=== PATIENT | male | born 2000 | race Asian ===

== ENCOUNTER 2021-03-03 14:33 | Outpatient (CLI) | payer SELFPAY ==
--- NOTE | 2021-03-03 16:52 | XRAY Report ---
PROCEDURE: Clavicle RT INDICATIONS: FX OF R CLAVICLE TECHNIQUE: 2 views of the clavicle were acquired. COMPARISON: None. FINDINGS: Bones: Moderately displaced comminuted fracture of the midshaft of the clavicle which demonstrates a roughly 25 mm of override. Soft tissues: No suspicious soft tissue calcifications. IMPRESSION: Mid shaft clavicular fracture as above. Reviewed by: Dennise Allen MD on 03/03/2021 4:51 PM PDT Approved by: Dennise Allen MD on 03/03/2021 4:51 PM PDT Station ID: [id number]
== END 2021-03-03 23:59 | disposition home or self-care (01) ==
LOC: DI.N 14:33
PROVIDERS: ATTEND Family Medicine
DX: S42.021A Displaced fracture of shaft of right clavicle, initial encounter for closed fracture (principal)

== ENCOUNTER 2021-03-15 06:12 | Day surgery (SDC) | payer OTHER ==
[2021-03-15] MEDS ORDERED: CELECOXIB 100 MG CAPSULE PO ONE (06:18)
[2021-03-15] MEDS ORDERED: ACETAMINOPHEN 1,000 MG/100 ML 100 ML IV ONE (06:18)
[2021-03-15] MEDS ORDERED: CEFAZOLIN SODIUM IN 0.9 % NACL 2 GM/100 ML BAG IV ONE (06:18)
[2021-03-15] MEDS ORDERED: LACTATED RINGERS 1,000 ML IV ONE ×2 (06:23→10:39)
[2021-03-15] MEDS ORDERED: ROCURONIUM 50 MG/5 ML VIAL ONE (07:10)
[2021-03-15] MEDS ORDERED: PROPOFOL 200 MG/20 ML VIAL IVP ONE (07:10)
[2021-03-15] MEDS ORDERED: MIDAZOLAM 2 MG/2 ML VIAL ONE (07:10)
[2021-03-15] MEDS ORDERED: LIDOCAINE-MPF 2% 5 ML VIAL ONE (07:10)
[2021-03-15] MEDS ORDERED: fentaNYL 100 MCG/2 ML VIAL ONE (07:10)
[2021-03-15] MEDS ORDERED: DEXAMETHASONE 10 MG/ML VIAL ONE (07:16)
[2021-03-15] MEDS ORDERED: ROPIVACAINE 0.5% PF 20 ML AMPULE ONE (07:17)
--- NOTE | 2021-03-15 07:18 | ANESTHESIA ---
Pre-Anesthesia VS, & Labs - Diagnosis displaced clavicle fracture - Procedure right clavicle ORIF Vital Signs: Temp Pulse Resp BP Pulse Ox 36.6 C 84 14 119/74 100 03/15/21 06:27 03/15/21 06:27 03/15/21 06:27 03/15/21 06:27 03/15/21 06:27 Height: 5 ft 4 in Weight (kg): 57.6 kg Body Mass Index: 21.8 BMI Classification: Healthy weight - NPO >8 hours - Lab Results Current Lab Results: Laboratory Tests 03/15/21 06:48: POC Whole Bld Glucose 85 Home Medications and Allergies Home Medications: Ambulatory Orders No Known Home Medications 03/10/21 No Known Home Medications 03/10/21 Allergies/Adverse Reactions: Allergies Allergy/AdvReac Type Severity Reaction Status Date / Time No Known Drug Allergies Allergy Verified 03/10/21 12:25 Anes History & Medical History - Anesthetic History Anesthesia Complications: reports: No previous complications - Medical History Cardiovascular: reports: None Pulmonary: reports: None Gastrointestinal: reports: None Urinary: reports: None Musculoskeletal: reports: None Endocrine/Autoimmune: reports: None Skin: reports: Eczema History of Cancer?: No Exam General: Alert Dental: WNL Mouth Opening: Greater than 4 Fingerbreadths Neck Mobility: Normal Mallampati classification: I Respiratory: Lungs clear Cardiovascular: Regular rate Plan Anesthesia Type: General Consent for Procedure(s) Verified and Reviewed: Yes Code Status: Attempt Resuscitation ASA classification: 1-Healthy patient Is this case an emergency?: No
[2021-03-15] MEDS ORDERED: METOCLOPRAMIDE 10 MG/2 ML VIAL IVP PRN ×2 (07:20→11:45)
[2021-03-15] MEDS ORDERED: MORPHINE 2 MG/ML CARPUJECT IVP PRN (07:20)
[2021-03-15] MEDS ORDERED: ePHEDrine 50 MG/ML VIAL IVP PRN (07:20)
[2021-03-15] MEDS ORDERED: ONDANSETRON 4 MG/2 ML VIAL IVP PRN (07:20)
[2021-03-15] MEDS ORDERED: NALOXONE 0.4 MG/ML VIAL IVP PRN (07:20)
[2021-03-15] MEDS ORDERED: fentaNYL 100 MCG/2 ML VIAL IVP PRN (07:20)
[2021-03-15] MEDS ORDERED: HYDROmorphone 0.5 MG/0.5 ML SYRINGE IVP PRN (07:20)
[2021-03-15] MEDS ORDERED: ATROPINE ABBOJECT 1 MG/10 ML SYRINGE IVP PRN (07:20)
[2021-03-15] MEDS ORDERED: KETOROLAC 15 MG/ML VIAL IVP STA (07:23)
[2021-03-15] MEDS ORDERED: oxyCODONE 5 MG TABLET PO PRN (07:23)
[2021-03-15] MEDS ORDERED: BUPIVACAINE 0.5%-EPI 1:200000 PF 30 ML VIAL ONE (07:24)
[2021-03-15] MEDS ORDERED: VANCOMYCIN 1 GM VIAL ONE (07:24)
[2021-03-15] MEDS ORDERED: LACTATED RINGERS 1,000 ML IV SCH (08:00)
[2021-03-15] MEDS ORDERED: VANCOMYCIN 1 GM VIAL MC ONE (09:51)
[2021-03-15] MEDS ORDERED: ONDANSETRON 4 MG/2 ML VIAL ONE ×2 (10:13→11:19)
--- NOTE | 2021-03-15 10:29 | OPERATIVE REPORT ---
Operative Report - General Procedure Date: 03/15/21 Planned Procedure: Open reduction internal fixation right midshaft clavicle Pre-Op Diagnosis: Displaced, comminuted fracture right midshaft clavicle Procedure Performed: Open reduction internal fixation right clavicle with superior plate, lag screw; internal fixation provided by Arthrex Post Op Diagnosis: Same as preoperative diagnosis - Procedure Note Primary Surgeon: Jaya Wagner MD Secondary Surgeon: Benitez CHUA Anesthesia Provider: Rufina Katz CRNA Anesthesia Technique: General ET tube, Regional block Estimated Blood Loss (mL): 50 Indications: This is a 20-year-old man who sustained a right clavicle fracture just a little over 3 weeks ago while visiting [facility]. He was initially evaluated where the injury occurred but returned to [place] for definitive care. He notes pain, deformity and tenting of skin over the right midshaft clavicle. He is thinly built. His exam showed tenting of skin at fracture site from a fragment of bone being rotated and pushing the skin away from the bone. He had no neurovascular deficit. Had no other injuries. His x-rays verified a comminuted midshaft fracture right clavicle with displacement. Findings: There were more than 1 fracture plane. The major fracture plane was a short oblique fracture midshaft clavicle. There were 2 inferior butterfly fragments below the primary fracture, one relatively intact and the other more of a shell of bone which was comminuted.There was deformity at fracture site and tenting of skin at fracture site.There was no break in the skin. Complications: none - Other Other Information/Narrative: The patient was brought to the operating room. [facility], head was secured with facemask, head of bed elevated to about 30 degrees. He was given a general endotracheal anesthesia and a preoperative shoulder block. The Arthrex The incision was made on the inferior border of the clavicle. The skin was exposed by spreading technique to identify the sensory nerves. The fracture was relatively stable but there was motion. There was overlapping of the fracture. The cortical fragment that was tenting the skin came from the inferior surface and had been rotated 90 degrees. There was a small amount of callus that was taken down at the fracture site to mobilize the fracture. The fracture was exposed by subperiosteal dissection but every attempt to minimize soft tissue maintenance was done, especially to the small butterfly fragments. The fracture could be reduced with bone clamps at each end. The fracture was stabilized with a K wire. The butterfly fragment that was rotated and tenting of the skin was derotated, reduced and held with a K wire. A superior plate was applied and contoured with locking capability to screw holes. The plate was secured with a bone clamp and a push pin. Nonlocking screws were placed medial and lateral to fracture site, compressing plate to bone. Additional locking and nonlocking screws were inserted to provide a very stable construct to the fracture. Care was taken not to over drill the inferior cortex of the clavicle. The butterfly fragment was secured with a 2.7 mm lag screw and this was inserted from anterior to posterior. The C arm image intensifier was used to provide x-ray of the clavicle with good fracture alignment and position of internal fixation. The wound was thoroughly irrigated with normal saline. 2 g of vancomycin powder were placed over the plate. The fascial layer was closed with 2-0 Vicryl and the skin was closed with 3-O strata fix subcuticular suture and Dermabond.Trimano arm kim was applied to the operative room table. The right shoulder and right upper extremity were prepped and draped in a sterile manner in the usual fashion. A preincision C arm radiograph was obtained with the C arm image intensifier which had been draped with a sterile drape. A timeout procedure was performed by the entire operating room team and all were in agreement.A physician assurance assistant was utilized, felt to be medically necessary to help with exposure, protection of vital structures and insertion of internal fixation as well as incision closure. A silver impregnated dressing was applied to the skin and the patient tolerated the procedure wellHe did receive 2 g of Ancef intravenously
[2021-03-15] MEDS ORDERED: SUGAMMADEX 200 MG/2 ML VIAL IVP ONE (10:31)
[2021-03-15] MEDS ORDERED: PROMETHAZINE INJ 12.5 MG in SODIUM CHLORIDE 0.9% 50 ML IV PRN (11:38)
[2021-03-15] MEDS ORDERED: METOCLOPRAMIDE 10 MG/2 ML VIAL ONE (11:47)
[2021-03-15 13:00] VITALS: BP 112/64
--- NOTE | 2021-03-15 16:36 | ANESTHESIA POST OP EVALUATION ---
Anesthesia Post Eval - Post Anesthesia Eval Vitals: Last Vital Signs Temp 36.2 C L 03/15/21 12:50 Pulse 88 03/15/21 12:50 Resp 12 03/15/21 12:50 BP 112/64 03/15/21 12:50 Pulse Ox 99 03/15/21 12:50 CV Function Including HR & BP: Stable Pain Control: Satisfactory Nausea & Vomiting: Negative Mental Status: Baseline Respiratory Status: Airway Patent Hydration Status: Satisfactory Anesthesia Complications: None
--- NOTE | 2021-03-15 17:11 | XRAY Report ---
PROCEDURE: OR C-Arm Procedure INDICATIONS: orif clavicle TECHNIQUE: Single intraoperative view was obtained. COMPARISON: Clavicle x-ray 03/03/2021 FINDINGS: There is been ORIF of the mid right clavicular fracture. There is relatively good anatomic alignment and single view. 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 IMPRESSION: Intraoperative clavicular ORIF. Reviewed by: Joceline Heard MD on 03/15/2021 5:10 PM PDT Approved by: Joceline Heard MD on 03/15/2021 5:10 PM PDT Station ID: [id number]
== END 2021-03-15 06:13 | disposition home or self-care (01) ==
LOC: SDS 06:12
PROVIDERS: ATTEND Orthopaedic Surgery
PROC: 0PS904Z Reposition Right Clavicle with Internal Fixation Device, Open Approach (ICD-10-PCS; principal; 2021-03-15 07:30)
DX: S42.021A Displaced fracture of shaft of right clavicle, initial encounter for closed fracture (principal); V19.88XA Pedal cyclist (driver) (passenger) injured in other specified transport accidents, initial encounter; Y93.55 Activity, bike riding
CPT/HCPCS: 23515; A9270; C1713; J0131; J0690; J2765; J3370; J7120